=== PATIENT | male | born 1995 | race Caucasian/White ===

== ENCOUNTER → 2016-10-22 | Outpatient (CLI) | payer OTHER ==
[~2016-10-22] MED LIST: MAGNEVIST IV PRN
--- NOTE | 2016-10-22 09:11 | DIAGNOSTIC IMAGING REPORT ---
ABDOMINAL MRI WITH AND WITHOUT INTRAVENOUS CONTRAST HISTORY: MALIGNANT NEOPLASM OF APPENDIX TECHNIQUE: Multiplanar multisequence MRI of the abdomen and pelvis were performed both before and after the intravenous administration of contrast. COMPARISON STUDY: Abdominal MRI 02/27/2016. FINDINGS: The lung bases are clear. The liver, spleen, pancreas, adrenal glands, kidneys, and gallbladder are unremarkable. There is no retroperitoneal lymphadenopathy. No suspicious osseous lesions identified. Small nodules adjacent to the spleen remains stable and likely represent accessory spleens. Postcontrast sequences show no areas of abnormal enhancement. IMPRESSION: No evidence for metastatic disease within the abdomen. Electronically signed by: Marck Hernandez M.D. 10/22/2016 9:09 AM Dictated Date/Time: 10/22/2016 9:07 AM
--- NOTE | 2016-10-22 09:14 | DIAGNOSTIC IMAGING REPORT ---
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 There is no evidence of focal pulmonary consolidation. There is no evidence of failure. No pleural effusions are visualized.[ There is an azygous fissure. IMPRESSION: No active disease in the chest. Electronically signed by: Angel Nation M.D. 10/22/2016 9:13 AM Dictated Date/Time: 10/22/2016 9:12 AM
--- NOTE | 2016-10-22 09:16 | DIAGNOSTIC IMAGING REPORT ---
MRI OF THE PELVIS WITH AND WITHOUT CONTRAST CLINICAL HISTORY: Malignant neoplasm of appendix. COMPARISON STUDY: CT of the abdomen and pelvis June 21, 2013 and MRI of the abdomen and pelvis March 04, 2016. TECHNIQUE: Utilizing 1.5 Damaris magnet and dedicated coil, multiplanar, multiecho imaging of the pelvis was performed pre and postcontrast administration. Injection of 20 cc of Magnevist IV was uneventful. Post contrast imaging was performed utilizing dynamic enhancement. FINDINGS: The MRI of the abdomen will be reported separately. The caliber and wall thickness of small and large bowel are normal. There is no pelvic ascites. No enlarged pelvic lymph nodes are present. No areas of marrow replacement are identified within visualized skeletal structures. IMPRESSION: No evidence of metastatic disease within the pelvis. Electronically signed by: Gael Lara M.D. 10/22/2016 9:14 AM Dictated Date/Time: 10/22/2016 8:50 AM
== END | disposition home or self-care (01) ==
LOC: C.MRI 07:37
PROVIDERS: ATTEND Internal Medicine Hematology & Oncology
DX: C18.1 Malignant neoplasm of appendix (principal)

== ENCOUNTER 2017-09-16 16:52 | Emergency (ER) | payer OTHER ==
[~2017-09-16] VITALS: Ht 172.7 cm; Wt 55.2 kg
[2017-09-16] MEDS ORDERED: LIDOCAINE/EPINEPH/TETRACAINE 1 EA SYR EXT STA (16:57)
[2017-09-16 16:58] VITALS: TEMP 36.8; Ht 172.7 cm; Wt 55.2 kg
[2017-09-16] MEDS ORDERED: SODIUM CHLORIDE 0.9% 1000ML 1,000 ML IV ONE (17:15)
--- NOTE | 2017-09-16 17:18 | EMERGENCY ROOM VISIT NOTE ---
History First contact with patient: 16:57 Chief Complaint: SYNCOPE Stated Complaint: PASSED OUT Nursing Triage Summary: Patient here as a scribe for today.Patient watching a spinal tap in B09 and sustained a syncopal episode. Upon entering this room, the patient was laying flat on the floor on his stomach. Patient pale, diaphoretic. Patient's body jerking slightly. Patient woke up immediately when his name is called. Patient unable to recall what happened. Patient denies any recent illness. Patient reports feeling "a little lightheaded." Laceration noted to the left cheek about 1.5 inches in length. Small amount of edema noted around the laceration. PMH: Colon CA with multiple surgeries - no chemo. History of Present Illness The patient is a 22 year old male who presents to the Emergency Room with complaints of a syncopal episode prior to arrival. The patient was watching a doctor do a lumbar puncture. He became slightly lightheaded and then passed out striking his cheek. He denies any heart palpitations, chest pain or pressure prior to the fall. He was feeling well earlier today. He does admit that he only had a few bites of cottage cheese at 10 AM this morning. He currently describes mild discomfort over the left cheek associated with the laceration. He denies any neck pain. Review of Systems 10 system review performed and negative unless noted in HPI or below Past Medical/Surgical History Medical Problems: (1) Colon cancer Social History Smoking Status: Never Smoker Drug Use: none Marital Status: single Housing Status: lives with roommate Occupation Status: [employer] Current/Historical Medications No Active Prescriptions or Reported Meds Allergies Coded Allergies: No Known Allergies (Unverified , 02/06/14) Physical Exam Vital Signs Date Time Temp Pulse Resp B/P (MAP) Pulse Ox O2 Delivery O2 Flow Rate FiO2 09/16/17 17:45 86 16 141/91 100 Room Air 09/16/17 17:45 69 16 142/97 100 Room Air 86 141/91 95 140/90 09/16/17 16:58 36.8 78 16 130/81 99 Room Air Physical Exam VITALS: Vitals are noted on the nurse's note and reviewed by myself. Vital signs stable. GENERAL: 22-year-old male, pale in appearance,, SKIN: 3 cm laceration noted to the left cheek. The edges gape apart. There is no active bleeding. No foreign material noted in the wound. HEAD: Normocephalic atraumatic. EYES: Pupils equal round and reactive to light and accommodation. Conjunctivae without injection, sclerae without icterus. Extraocular movements intact. MOUTH: Mucous membranes slightly dry NECK: Supple without nuchal rigidity. No lymphadenopathy. Cervical spine is nontender. No JVD. HEART: Regular rate and rhythm without murmurs gallops or rubs. LUNGS: Clear to auscultation bilaterally without wheezes, rales or rhonchi. No accessory muscle use. MUSCULOSKELETAL: No muscle atrophy, erythema, or edema noted. Strength 5/5 throughout. NEURO: Patient was alert and oriented to person place and time. Normal sensation to touch. No focal neurological deficits. Medical Decision & Procedures ER Provider Diagnostic Interpretation: DT facial bones without contrast IMPRESSION: 1. No acute facial bone fracture or dislocation. 2. Mild left cheek soft tissue swelling with small laceration. No opaque foreign body. The above report was generated using voice recognition software. It may contain grammatical, syntax or spelling errors. Electronically signed by: Marino Isidro M.D. 09/16/2017 6:10 PM Dictated Date/Time: 09/16/2017 6:05 PM The status of this report is Signed. Draft = Not yet reviewed or approved by Radiologist. Signed = Reviewed and approved by Radiologist. CT head without contrast Patient Name: QI MEJIAS Unit Number: [id number] Dictated: 09/16/171802 Transcribed: 09/16/171802 JRB Printed Date/Time: [~ rep prt dt]/[~ rep prt tm] [~ rep ct labl] - [~ rep ct ivnm] [facility] [place] [address] Dictated: 09/16/171802 Transcribed: 09/16/171802 JRB Printed Date/Time: [~ rep prt dt]/[~ rep prt tm] [~ rep ct labl] - [~ rep ct ivnm] IMPRESSION: No acute intracranial abnormality. The above report was generated using voice recognition software. It may contain grammatical, syntax or spelling errors. Electronically signed by: Marino Isidro M.D. 09/16/2017 6:05 PM Dictated Date/Time: 09/16/2017 6:03 PM The status of this report is Signed. Draft = Not yet reviewed or approved by Radiologist. Signed = Reviewed and approved by Radiologist. <AttendingPhy></AttendingPhy> <FamilyPhy>No Doctor, Assigned</FamilyPhy> < PrimaryPhy>No Doctor, Assigned</PrimaryPhy> <UnitNumber>[id number]</UnitNumber> <VisitNumber>[id number]</VisitNumber> <PatientName>QI MEJIAS</ PatientName> <DateOfBirth>1995</DateOfBirth> <Location>C.EDB</Location> < ServiceDate>09/16/17</ServiceDate> <MNE>ESINDI</MNE> <OrderingPhy>Mariela Knight PA-C</OrderingPhy> <OrderingPhyMNE>f rep ord dr miller</OrderingPhyMNE> < DictatingPhyMNE>f rep dict dr miller</DictatingPhyMNE> <CCListMNE>f rep ct mne</ CCListMNE> <AdmittingPhyMNE>f pt admit dr miller</AdmittingPhyMNE> <AttendingPhyMNE >f pt attend dr miller</AttendingPhyMNE> <ConsultingPhyMNE>f pt consult dr miller</ConsultingPhyMNE> <FamilyPhyMNE>f pt fam dr miller</FamilyPhyMNE> <OtherPhyMNE>f pt other dr miller</OtherPhyMNE> < PrimaryPhyMNE>f pt prim care dr miller</PrimaryPhyMNE> <ReferringPhyMNE>f pt referring dr miller</ReferringPhyMNE> Laboratory Results 09/16/17 17:17 Red Blood Count 4.97, Mean Corpuscular Volume 85.7, Mean Corpuscular Hemoglobin 30.2, Mean Corpuscular Hemoglobin Concent 35.2, Mean Platelet Volume 9.7, Neutrophils (%) (Auto) 56.4, Lymphocytes (%) (Auto) 35.0, Monocytes (%) (Auto) 7.1, Eosinophils (%) (Auto) 0.9, Basophils (%) (Auto) 0.3, Neutrophils # (Auto) 3.74, Lymphocytes # (Auto) 2.32, Monocytes # (Auto) 0.47, Eosinophils # (Auto) 0.06, Basophils # (Auto) 0.02 09/16/17 17:17 Test 09/16/17 17:17 White Blood Count 6.63 K/uL (4.8-10.8) Red Blood Count 4.97 M/uL (4.7-6.1) Hemoglobin 15.0 g/dL (14.0-18.0) Hematocrit 42.6 % (42-52) Mean Corpuscular Volume 85.7 fL (80-100) Mean Corpuscular Hemoglobin 30.2 pg (25-34) Mean Corpuscular Hemoglobin Concent 35.2 g/dl (32-36) Platelet Count 199 K/uL (130-400) Mean Platelet Volume 9.7 fL (7.4-10.4) Neutrophils (%) (Auto) 56.4 % Lymphocytes (%) (Auto) 35.0 % Monocytes (%) (Auto) 7.1 % Eosinophils (%) (Auto) 0.9 % Basophils (%) (Auto) 0.3 % Neutrophils # (Auto) 3.74 K/uL (1.4-6.5) Lymphocytes # (Auto) 2.32 K/uL (1.2-3.4) Monocytes # (Auto) 0.47 K/uL (0.11-0.59) Eosinophils # (Auto) 0.06 K/uL (0-0.5) Basophils # (Auto) 0.02 K/uL (0-0.2) RDW Standard Deviation 37.8 fL (36.4-46.3) RDW Coefficient of Variation 12.3 % (11.5-14.5) Immature Granulocyte % (Auto) 0.3 % Immature Granulocyte # (Auto) 0.02 K/uL (0.00-0.02) Anion Gap 6.0 mmol/L (3-11) Est Creatinine Clear Calc Drug Dose 84.6 ml/min Estimated GFR () 114.1 Estimated GFR (Non- 98.4 BUN/Creatinine Ratio 22.5 (10-20) Calcium Level 9.6 mg/dl (8.5-10.1) Total Bilirubin 0.9 mg/dl (0.2-1) Aspartate Amino Transf (AST/SGOT) 17 U/L (15-37) Alanine Aminotransferase (ALT/SGPT) 38 U/L (12-78) Alkaline Phosphatase 77 U/L (45-117) Total Protein 8.6 gm/dl (6.4-8.2) Albumin 4.8 gm/dl (3.4-5.0) Globulin 3.8 gm/dl (2.5-4.0) Albumin/Globulin Ratio 1.3 (0.9-2) Medications Administered Medications (Trade) Dose Ordered Sig/Phill Route Start Time Stop Time Status Last Admin Dose Admin Tetracaine/ Epinephrine/ Lidocaine (L.e.t. Gel 4%/ 1:100/0.5%) 1 ea NOW STAT EXT 09/16/17 16:57 09/16/17 16:58 DC 09/16/17 17:10 1 EA Sodium Chloride 1,000 ml @ 999 mls/hr Q1H1M ONCE IV 09/16/17 17:15 09/16/17 18:15 DC 09/16/17 17:15 999 MLS/HR Procedure I examined the patient. Verbal consent was obtained to perform the procedure. Using sterile technique the wound was cleansed with Betadine. The area was sterilely draped. 3 ml of 1% buffered lidocaine was used to anesthetize the laceration on the 6. Once the patient was anesthetized, the wound was copiously irrigated under pressure with sterile saline. The wound was explored and was as described above. The laceration was repaired using [] simple interrupted 6-0 nylon sutures with the wound edges being well approximated. The patient tolerated the procedure well. Hemostasis was achieved. The area was cleaned with sterile saline and dressed with bacitracin ointment and bandage. ED Course Patient was seen and examined Vital signs including blood pressure were reviewed medications list was verified with patient Labs were obtained, and a saline lock was established An EKG was performed. He was put on a monitor. Imaging was performed and reviewed The patient was hydrated with 1 L of normal saline The laceration was repaired. Please procedure note. Upon reassessment, the patient was resting comfortably. We reviewed the results of his workup. He voiced understanding. I reviewed discharge instructions the patient. They voiced understanding and had no further questions. Medical Decision Differential diagnosis: Vasovagal syncope, neurogenic syncope, dehydration, hypoglycemia This patient is a 22-year-old male that presents to emergency department with a syncopal episode prior to arrival. He was watching a lumbar puncture. My thoughts were that this was likely vasovagal in nature. He did have a significant laceration to his left cheek. Otherwise, his physical exam was unremarkable. Lab work did not show any significant abnormalities. A CT of the head and facial bones were also negative. He was hydrated with 1 L of normal saline in the emergency department. I believe he is stable to be discharged home. He was instructed to stay well hydrated, eat regular meals and rest. He agrees to return to the emergency department with any new, worsening or concerning symptoms Impression Primary Impression: Syncope Departure Information Dispostion Home / Self-Care Condition GOOD Prescriptions No Active Prescriptions or Reported Meds Referrals No Doctor, Assigned (PCP) Patient Instructions My [facility] Additional Instructions You were evaluated in the emergency department for an episode of syncope ( passing out). This is likely vasovagal in nature due to the procedure that he were watching. This was also compounded with likely mild dehydration and not eating Please try to stay well-hydrated. Increase your fluid intake over the next 24 hours. Please eat regular meals. Keep wound clean. It is okay to gently wash the area with soapy water. Do not submerse it in water for long periods of time such as swimming, going in hot tubs or taking baths until the sutures come out. Do not allow any crusting or dried blood to accumulate on sutures. If this occurs, use a 1:1 solution of hydrogen peroxide/water on a Q-tip to clean the wound. Use an antibiotic ointment for 2 days, then let wound dry. Suture removal in 7 days. Return sooner for any signs of infection (increasing redness, swelling, drainage). Ice and elevate for swelling and pain. Ibuprofen 600 mg and Tylenol 1000 mg every 6 hrs for pain.
[2017-09-16 17:53] LABS: BUN/CREATININE RATIO 22.5 (10-20); CALCIUM 9.6 mg/dl (8.5-10.1); CREATININE 1.06 mg/dl (0.60-1.40); POTASSIUM 3.7 mmol/L (3.5-5.1)
[2017-09-16 17:56] LABS: ALB/GLOB RATIO 1.3 (0.9-2)
[2017-09-16 18:04] LABS: BASO % 0.3 %; BASO ABS # 0.02 K/uL (0-0.2); COMPLETE YES; EOS % 0.9 %; HEMATOCRIT 42.6 % (42-52); IG% 0.3 %; LYMPH ABS # 2.32 K/uL (1.2-3.4); MEAN CELL VOLUME 85.7 fL (80-100); MEAN CORPUSCULAR HEMOGLOBIN 30.2 pg (25-34); MEAN CORPUSCULAR HGB CONC 35.2 g/dl (32-36); MEAN PLATELET VOLUME 9.7 fL (7.4-10.4); MONO % 7.1 %; NEUT % 56.4 %; PLATELET COUNT 199 K/uL (130-400); RED BLOOD COUNT 4.97 M/uL (4.7-6.1); WHITE BLOOD COUNT 6.63 K/uL (4.8-10.8)
--- NOTE | 2017-09-16 18:07 | DIAGNOSTIC IMAGING REPORT ---
HEAD WITHOUT CONTRAST (CT) CLINICAL HISTORY: 22 years-old Male with syncope fall. Acute head injury status post fall TECHNIQUE: Multiple axial CT images of the head were obtained without contrast. A dose lowering technique was utilized adhering to the principles of ALARA. CT DOSE: 822.66 mGy.cm COMPARISON: CT maxillofacial same day. FINDINGS: No acute intracranial hemorrhage, midline shift, intracranial mass, hydrocephalus, territorial ischemia or abnormal extra-axial collection. The calvarium is intact. The paranasal sinuses, mastoid air cells, and middle ear cavities are clear. IMPRESSION: No acute intracranial abnormality. The above report was generated using voice recognition software. It may contain grammatical, syntax or spelling errors. Electronically signed by: Marino Isidro M.D. 09/16/2017 6:05 PM Dictated Date/Time: 09/16/2017 6:03 PM
[2017-09-16] MEDS ORDERED: XYLOCAINE 1%/SOD BICARB 20 ML VIAL INFIL ONE (18:12)
--- NOTE | 2017-09-16 18:12 | DIAGNOSTIC IMAGING REPORT ---
FACIAL BONES-MXILLOFAC WITHOUT CLINICAL HISTORY: 22 years-old Male presenting with L facial lac over cheek. Acute fall with left cheek laceration COMPARISON STUDY: CT head of same day TECHNIQUE: High-resolution CT scan of the facial bones is performed. Images are reviewed in the axial, sagittal, and coronal planes. IV contrast was not administered for this examination. A dose lowering technique was utilized adhering to the principles of ALARA. FINDINGS: There is no evidence of facial bone fracture. The bony orbits are intact and the orbital contents are within normal limits. The zygomatic arches, nasal bones, and pterygoid plates are preserved. The maxilla and mandible are intact. The paranasal sinuses and mastoid air cells are clear. The imaged calvarium and upper cervical spine are within normal limits. Partially imaged brain parenchyma is within normal limits. There is mild left cheek soft tissue swelling without opaque foreign body. Small left cheek laceration. IMPRESSION: 1. No acute facial bone fracture or dislocation. 2. Mild left cheek soft tissue swelling with small laceration. No opaque foreign body. The above report was generated using voice recognition software. It may contain grammatical, syntax or spelling errors. Electronically signed by: Marino Isidro M.D. 09/16/2017 6:10 PM Dictated Date/Time: 09/16/2017 6:05 PM
[2017-09-16 19:04] VITALS: BP 135/89; PULSE 55; O2SAT 99
== END 2017-09-16 19:06 | disposition home or self-care (01) ==
LOC: C.EDB 16:54
DX: R55 Syncope and collapse (principal); C18.9 Malignant neoplasm of colon, unspecified